=== PATIENT | female | born 2000 | race African-American/Black ===

== ENCOUNTER → 2021-03-01 09:22 | Outpatient (BNVA) | payer BC, MEDICAID, SELFPAY | PROVIDERS: Visit Provider Obstetrics & Gynecology | DX: Z34.80 Encounter for supervision of other normal pregnancy, unspecified trimester (principal) | CPT/HCPCS: 80307; 81000; 83036; 85027; 86592; 86762; 86803; 86850; 86900; 87086; 87340; 87491; 87591; 87806 ==

== ENCOUNTER → 2021-03-16 10:18 | Outpatient (BNVA) | payer BC, MEDICAID, SELFPAY | PROVIDERS: Visit Provider Nurse Practitioner Women's Health | DX: O09.30 Supervision of pregnancy with insufficient antenatal care, unspecified trimester; Z3A.00 Weeks of gestation of pregnancy not specified | CPT/HCPCS: 81000; 86787 ==

== ENCOUNTER → 2021-04-07 10:54 | Outpatient (BNVA) | payer BC, MEDICAID, SELFPAY | PROVIDERS: Visit Provider Obstetrics & Gynecology | DX: Z36.89 Encounter for other specified antenatal screening (principal) | CPT/HCPCS: 76805 ==

== ENCOUNTER 2021-09-08 20:00 | Outpatient (CLI) | payer BC, MEDICAID, SELFPAY | END 2021-09-08 20:01 | disposition home or self-care (01) | LOC: SLEEP 09-09 05:06 | PROVIDERS: Visit Provider Nurse Practitioner | DX: R40.0 Somnolence (principal); R06.83 Snoring; R53.83 Other fatigue | CPT/HCPCS: 95810 ==

== ENCOUNTER 2021-10-15 16:00 | Outpatient (CLI) | payer BC, MEDICAID, SELFPAY ==
--- NOTE | 2021-10-15 16:45 | MR_ITS ---
WS: [id number] MRI BRAIN WITHOUT CONTRAST HISTORY: HEADACHE R51.9 COMPARISON: None available. TECHNIQUE: Diffusion imaging, multiplanar T1, T2 and FLAIR imaging obtained. No evidence for acute infarct or hemorrhage. Multani-white matter differentiation is normal. No remote or acute infarcts are volume loss. Ventricles and extra-axial spaces are normal. No inferior displacement of cerebellar tonsils. The sella turcica and pituitary gland are unremarkabl e. Dural venous sinuses and [place] demonstrate no abnormality on this unenhanced studies. Paranasal sinuses: There is moderate mucoperiosteal thickening involving the sphenoid, ethmoid and ma xillary sinuses. There is marked expansion of the sphenoid sinus cavity. More mild mucoperiosteal thi ckening in the frontal sinuses. Mastoid air cells: Increased signal in the LEFT mastoid air cells consistent with a mild effusion. Calvarium and scalp: Intact. MR/MR head wo con* [id number] IMPRESSION: 1. No acute infarct or mass. 2. Moderate sinusitis with expansion of the sphenoid sinus cavities. Mucoperio steal thickening predominantly and most significantly involves the maxillary, e thmoid and sphenoid sinuses. Consider further evaluation by sinus CT, noncontra st. CT will better evaluate the bony structures.
== END 2021-10-15 16:01 | disposition home or self-care (01) ==
PROVIDERS: PCP Nurse Practitioner; Visit Provider Nurse Practitioner
DX: R51.9 Headache, unspecified (principal); J32.8 Other chronic sinusitis
CPT/HCPCS: 70551